=== PATIENT | male | born 1985 | race Caucasian/White ===

== ENCOUNTER 2016-07-18 02:58 | Emergency (ER) | payer OTHER ==
[2016-07-18 05:35] VITALS: BP 142/86
== END 2016-07-18 05:35 | disposition home or self-care (01) ==
LOC: ED 02:58
DX: M25.561 Pain in right knee (principal)
CPT/HCPCS: J1885; Q0092

== ENCOUNTER 2016-08-26 08:42 | Emergency (ER) | payer OTHER ==
[~2016-08-26] VITALS: Ht 185.4 cm; Wt 200.7 kg
[2016-08-26 08:53] VITALS: BP 154/113
== END 2016-08-26 11:25 | disposition home or self-care (01) ==
LOC: ED 08:42
DX: G89.29 Other chronic pain (principal); M54.5 Low back pain
CPT/HCPCS: J1170

== ENCOUNTER 2017-04-07 13:31 | Emergency (ER) | payer OTHER ==
[~2017-04-07] VITALS: Ht 177.8 cm; Wt 203.2 kg
[2017-04-07 13:36] VITALS: BP 177/104; Ht 177.8 cm; Wt 203.2 kg
== END 2017-04-07 19:20 | disposition home or self-care (01) ==
LOC: ED 13:31
DX: T81.33XA Disruption of traumatic injury wound repair, initial encounter (principal); E66.01 Morbid (severe) obesity due to excess calories; G89.4 Chronic pain syndrome

== ENCOUNTER 2017-12-17 03:02 | Inpatient (IN) | payer OTHER ==
[~2017-12-17] VITALS: Ht 185.4 cm; Wt 213.2 kg
[2017-12-17 03:09] VITALS: Ht 185.4 cm; Wt 213.2 kg
[2017-12-17 05:27] LABS: BASOPHIL % 0.9 % (0-2); PLATELET COUNT 346 x10^3mcL (130-400); RED CELL DISTRIBUTION WIDTH 13.7 % (11.5-14.5)
[2017-12-17 05:28] LABS: CALCIUM 8.8 mg/dL (8.5-10.1); CARBON DIOXIDE 27.7 mmol/L (21-32); CHLORIDE SERUM 104 mmol/L (98-107); GFR1 > 60 mL/min; GLUCOSE SERUM 111 mg/dL (74-106); POTASSIUM SERUM 4.6 mmol/L (3.5-5.1); SODIUM SERUM 141 mmol/L (136-145)
[2017-12-17 05:32] LABS: ALBUMIN 3.6 g/dL (3.4-5.0); ALKALINE PHOSPHATASE 107 U/L (46-116); ALT/SGPT 30 U/L (16-63); AST/SGOT 16 U/L (15-37); BILIRUBIN TOTAL 0.46 mg/dL (0.20-1.00); LIPASE 93 IU/L (73-393)
[2017-12-17 05:37] LABS: TOTAL PROTEIN, SERUM 8.4 g/dL (6.4-8.2)
[2017-12-17 07:19] LABS: UA SPECIFIC GRAVITY >=1.030 (1.005-1.035); microscopic required? YES; urine erythrocyte NEGATIVE (NEGATIVE)
[2017-12-17 10:15] VITALS: BP 129/80
[2017-12-17 11:38] VITALS: BP 129/80
[2017-12-17 14:15] VITALS: BP 122/76
[2017-12-17 17:34] VITALS: BP 125/60
[2017-12-17 19:59] VITALS: BP 120/83
[2017-12-18 05:43] LABS: ALKALINE PHOSPHATASE 105 U/L (46-116); ALT/SGPT 53 U/L (16-63); AST/SGOT 35 U/L (15-37); BILIRUBIN TOTAL 0.69 mg/dL (0.20-1.00); CALCIUM 8.7 mg/dL (8.5-10.1); CARBON DIOXIDE 25.6 mmol/L (21-32); CHLORIDE SERUM 105 mmol/L (98-107); CREATININE SERUM 0.8 mg/dL (0.7-1.3); GFR1 > 60 mL/min; GLUCOSE SERUM 88 mg/dL (74-106); POTASSIUM SERUM 3.8 mmol/L (3.5-5.1); SODIUM SERUM 141 mmol/L (136-145); TOTAL PROTEIN, SERUM 7.7 g/dL (6.4-8.2)
[2017-12-18 05:45] LABS: ALBUMIN 3.2 g/dL (3.4-5.0)
[2017-12-18 05:52] VITALS: BP 120/70
[2017-12-18 07:22] LABS: BASOPHIL % 0.6 % (0-2); PLATELET COUNT 313 x10^3mcL (130-400); RED CELL DISTRIBUTION WIDTH 13.8 % (11.5-14.5)
[2017-12-18 09:27] VITALS: BP 145/78
[2017-12-18 14:28] VITALS: BP 145/78
== END 2017-12-18 15:45 | disposition home or self-care (01) | DRG 720 ==
LOC: ED 03:02 → MU 09:11
PROVIDERS: Emergency Medicine; Internal Medicine Pulmonary Disease
DX: A41.9 Sepsis, unspecified organism (principal); E66.01 Morbid (severe) obesity due to excess calories; Z90.49 Acquired absence of other specified parts of digestive tract; Z68.44 Body mass index [BMI] 60.0-69.9, adult
CPT/HCPCS: 78226; A9537; C9113; J0690; J1170; J2270; J2543; J3490; J7030; Q0092; Q0162; Q9967

== ENCOUNTER 2018-10-28 02:29 | Emergency (ER) | payer OTHER ==
[~2018-10-28] VITALS: Ht 185.4 cm; Wt 246.3 kg
[2018-10-28 02:38] VITALS: Ht 185.4 cm; Wt 246.3 kg
[2018-10-28 05:48] VITALS: BP 136/80
== END 2018-10-28 05:48 | disposition home or self-care (01) ==
LOC: ED 02:29
DX: J20.9 Acute bronchitis, unspecified (principal); Z90.49 Acquired absence of other specified parts of digestive tract
CPT/HCPCS: J7620; Q0092

== ENCOUNTER 2018-11-01 04:56 | Inpatient (IN) | payer OTHER ==
[~2018-11-01] VITALS: Ht 182.9 cm; Wt 249.5 kg
[2018-11-01 05:00] VITALS: Ht 182.9 cm; Wt 249.5 kg
--- NOTE | 2018-11-01 05:10 | NUR ---
PER PT HE HAS BEEN HAVING WHEEZING FOR TWO WEEKS. PT STS THAT HE [place] [facility] [place] DA[place]. PT STS THAT HIS SOB HAS BEEN INCREASEING. PT DENIES ANY CHEST PAIN AT THIS TIME. PT STS HE HAS A NON PRODUCTIVE DRY COUGH. PT STS HE HAS SOME GENERALIZED ABDOMINAL PAIN. PT STS THAT HE HAS A PRESSURE HEADACHE. PT PALCED ON FULL CM. SPAO2 98%. SAFETY PRECAUTIONS X2 IN PLACE. PT PLACED ON NC 2L FOR COMFORT. PT IS ALERT AND ORIENTED, SPEAKING IN CLEAR AND FULL SENTENCES. VSS. WILL CONTINUE TO MONITOR. ECCHYMOSIS NOTED ON RT CHEST AND LEFT HIP REGION.
--- NOTE | 2018-11-01 05:23 | NUR ---
UPON AUSCULTATION PT HAS EXPIRATORY WHEEZING.
--- NOTE | 2018-11-01 05:42 | NUR ---
RESP AT BEDSIDE. BREATHING TREATMENT IN PROGRESS. PT TOLERATING WELL. VSS. RESP E/U. PT MEDICATED ORDERED. WILL CONTINUE TO MONITOR.
[2018-11-01 06:13] LABS: BASOPHIL % 0.6 % (0-2); PLATELET COUNT 356 x10^3mcL (130-400)
--- NOTE | 2018-11-01 06:17 | NUR ---
UPON AUSCULTATION PT HAS REMAINING EXPIRATORY WHEEZING. DR. MARQUEZ CASTELLANOS. BREATHING TREATMENT CONTINUED. VSS. WILL CONTINUE TO MONITOR.
[2018-11-01 06:29] LABS: CALCIUM 8.8 mg/dL (8.5-10.1); CARBON DIOXIDE 28.1 mmol/L (21-32); CHLORIDE SERUM 106 mmol/L (98-107); CREATININE SERUM 0.9 mg/dL (0.7-1.3); GFR1 > 60 mL/min; GLUCOSE SERUM 112 mg/dL (74-106); POTASSIUM SERUM 3.6 mmol/L (3.5-5.1); SODIUM SERUM 143 mmol/L (136-145)
[2018-11-01 06:34] LABS: ALKALINE PHOSPHATASE 112 U/L (46-116); ALT/SGPT 26 U/L (16-63); AST/SGOT 9 U/L (15-37); BILIRUBIN TOTAL 0.17 mg/dL (0.20-1.00); TOTAL PROTEIN, SERUM 7.7 g/dL (6.4-8.2)
[2018-11-01 06:48] LABS: ALBUMIN 3.1 g/dL (3.4-5.0); RED CELL DISTRIBUTION WIDTH 15.6 % (11.5-14.5)
--- NOTE | 2018-11-01 07:05 | NUR ---
REPORT RECEIVED FROM DELFINA LOU
[2018-11-01] MEDS ORDERED: ALBUTEROL SULFAT0.51 (07:59)
--- NOTE | 2018-11-01 08:16 | NUR ---
REPORT GIVEN TO STEFANO LOU RESUMING CARE OF PT IN MED SURG FLOOR
--- NOTE | 2018-11-01 08:23 | NUR ---
RECEIVED PATIENT FROM ED VIA GUERNEY. PATIENT IS AWAKE, ALERT AND ORIENTED. ON 2L NC, RESP E/U. DENIES SOB AT REST. PATIENT AMBULATES STEADILY FROM GUERNEY TO BED. IV NOTED TO LEFT WRIST, SALINE LOCKED, NO S/S ERYTHEMA AT SITE. PATIENT ORIENTED TO ROOM. CALL LIGHT WITHIN EASY REACH. WILL CONTINUE PLAN OF CARE.
[2018-11-01 10:06] VITALS: BP 148/88
[2018-11-01 11:13] VITALS: BP 147/86
--- NOTE | 2018-11-01 12:05 | NUR ---
PATIENT TOLERATING AMBULATION ON ROOM AIR WELL. DENIES SOB. RESP E/U. WILL CONTINUE TO MONITOR.
[2018-11-01 17:13] VITALS: BP 154/88
--- NOTE | 2018-11-01 18:27 | NUR ---
PATIENT RESTING EASY. DENIES SOB ON ROOM AIR. RESP E/U. NO C/O PAIN OR DISCOMFORT. WILL ENDORSE PATIENT CARE TO SENIOR TECHNICAL PROJECT MANAGER NURSE.
--- NOTE | 2018-11-01 19:56 | NUR ---
RECEIVED PT IN BED, RESTING QUIETLY. A/O X4. DENIES HEADACHE/DIZZINESS. RESP. EVEN AND UNLABORED. ON ROOM AIR,DENIES SOB, NO ACUTE DISTRESS NOTED. HL TO LT WRIST, INTACT AND PATENT.DENIES PAIN OR ANY DISCOMFORT AT THIS TIME. VOIDING FREELY. ASSISTED WITH HS CARE. CALL LIGHT WITHIN REACH. WILL CONTINUE TO MONITOR.
[2018-11-01 20:56] VITALS: BP 120/68
--- NOTE | 2018-11-02 01:03 | NUR ---
EYES CLOSED, APPEARS ASLEEP, EASILY AROUSABLE. ON 02 AT 2L/MIN VIA NC, HOOD. WELL. NO ACUTE DISTRESS NOTED. WILL CONTINUE TO MONITOR.
[2018-11-02 04:59] VITALS: BP 147/81
--- NOTE | 2018-11-02 06:30 | NUR ---
AFEBRILE AND VITAL SIGNS STABLE. RESP. EVEN AND UNLABORED. DENIES SOB, NO ACUTE DISTRESS NOTED.AFEBRILE AND VITAL SIGNS STABLE. DUE MEDS GIVEN ORDERED, HOOD. WELL. KEPT COMFORTABLE. WILL ENDORSE TO INCOMING NURSE.
[2018-11-02 06:56] LABS: BASOPHIL % 0.4 % (0-2); PLATELET COUNT 387 x10^3mcL (130-400)
[2018-11-02 07:03] LABS: CALCIUM 9.3 mg/dL (8.5-10.1); CHLORIDE SERUM 105 mmol/L (98-107); CREATININE SERUM 0.8 mg/dL (0.7-1.3); GFR1 > 60 mL/min; GLUCOSE SERUM 142 mg/dL (74-106); POTASSIUM SERUM 4.6 mmol/L (3.5-5.1); SODIUM SERUM 140 mmol/L (136-145)
--- NOTE | 2018-11-02 07:10 | NUR ---
RECEIVED PATIENT FROM ELECTRO WINNING OPERATOR NURSE. PATIENT IS RESTING WITH BOTH EYES CLOSED, AROUSABLE. NOTED TO BE ON 2L NC AT REST, RESP E/U. IV NOTED TO LEFT WRIST, SALINE LOCKED, NO S/S ERYTHEMA AT SITE. CALL LIGHT WITHIN EASY REACH. FALL PREC IN PLACE. WILL CONTINUE PLAN OF CARE.
[2018-11-02 07:11] LABS: RED CELL DISTRIBUTION WIDTH 15.5 % (11.5-14.5)
[2018-11-02 08:08] VITALS: BP 146/77
--- NOTE | 2018-11-02 11:20 | NUR ---
PATIENT RESTING EASY IN NO ACUTE DISTRESS. DENIES SOB ON ROOM AIR. WILL CONTINUE TO MONITOR.
[2018-11-02 11:48] VITALS: BP 147/73
[2018-11-02 15:41] VITALS: BP 138/68
[2018-11-02 16:20] VITALS: BP 138/68
[2018-11-02 16:26] VITALS: BP 138/68
[2018-11-02] MEDS ORDERED: PREDNISONE50 MG PO (16:26)
--- NOTE | 2018-11-02 16:37 | NUR ---
PATIENT GIVEN ALL DC INSTRUCTIONS. ALL QUESTIONS ANSWERED REGARDING DC. ALL NEW PRESCRIPTIONS GIVEN TO PATIENT. PATIENT TO COLLECT BELONGINGS AND NOTIFY WHEN READY TO BE DC'D.
--- NOTE | 2018-11-02 16:48 | NUR ---
PATIENT DC'D AT THIS TIME. AWAKE, ALERT AND ORIENTED. DENIES SOB AT TIME OF DC. NO C/O PAIN OR DISCOMFORT. ALL PERSONAL BELONGINGS TAKEN WITH PATIENT. VS STABLE. PATIENT TAKEN DOWN TO DC OFFICE BY HERNANDEZ, BALL TRUING MACHINE OPERATOR.
== END 2018-11-02 16:48 | disposition home or self-care (01) | DRG 141 ==
LOC: ED 04:56 → MU 07:54
PROVIDERS: Specialist; ADMIT Internal Medicine Pulmonary Disease
DX: J45.901 Unspecified asthma with (acute) exacerbation (principal); E66.01 Morbid (severe) obesity due to excess calories; Z87.891 Personal history of nicotine dependence; Z90.49 Acquired absence of other specified parts of digestive tract; Z68.45 Body mass index [BMI] 70 or greater, adult
CPT/HCPCS: G0378; J0171; J2920; J2930; J3475; J7613; J7620; J7644; Q0092